=== PATIENT | female | born 1970 | race Hispanic/Latino ===

== ENCOUNTER 2024-03-24 21:37 | Emergency (ER) | payer OTHER ==
[2024-03-25] MEDS ORDERED: Ondansetron ODT 4 MG TAB ONE (06:06)
== END 2024-03-25 10:37 | disposition home or self-care (01) ==
LOC: CSHERS 21:37
DX: T40.711A Poisoning by cannabis, accidental (unintentional), initial encounter (principal); I10 Essential (primary) hypertension
CPT/HCPCS: 99284; Q0162